=== PATIENT | male | born 1950 | race Caucasian/White ===

== ENCOUNTER 2021-06-04 16:04 | Emergency (ER) | payer MEDICARE, OTHER ==
[~2021-06-04] VITALS: Ht 182.9 cm; Wt 88.5 kg
[2021-06-04 21:01] VITALS: BP 116/72
== END 2021-06-04 21:07 | disposition home or self-care (01) ==
LOC: ER 16:15
DX: S01.111A Laceration without foreign body of right eyelid and periocular area, initial encounter (principal); W01.0XXA Fall on same level from slipping, tripping and stumbling without subsequent striking against object, initial encounter; Y93.01 Activity, walking, marching and hiking; Y92.481 Parking lot as the place of occurrence of the external cause; M06.9 Rheumatoid arthritis, unspecified
CPT/HCPCS: 70450; 70486; 72125; 99284

== ENCOUNTER 2024-10-07 11:48 | Emergency (ER) | payer MEDICARE ==
[~2024-10-07] VITALS: Ht 182.9 cm; Wt 88.5 kg
[2024-10-07 12:29] VITALS: PULSE 70; RESP 16; TEMP 98.2; O2SAT 100
[2024-10-07] MEDS ORDERED: PREDNISONE20 MG PO (15:23)
== END 2024-10-07 15:37 | disposition home or self-care (01) ==
LOC: ER 14:19
DX: M54.41 Lumbago with sciatica, right side (principal); M06.9 Rheumatoid arthritis, unspecified
CPT/HCPCS: 99282